=== PATIENT | female | born 1975 | race African-American/Black ===

== ENCOUNTER 2016-12-17 10:53 | Emergency (ER) | payer SELFPAY ==
[~2016-12-17] VITALS: Ht 165.1 cm; Wt 104.3 kg
[~2016-12-17 10:53] MED LIST: GABA-585 PO; VENTOLIN HFA18 GM IH
[2016-12-17 11:07] VITALS: BP 137/77
--- NOTE | 2016-12-17 11:28 | PHYS DOC ---
Past Medical History Past Medical History: Asthma, Migraines, Other Additional Past Medical Histor: hx viral meningitis Past Surgical History: Appendectomy Alcohol Use: Rarely Drug Use: Marijuana Adult General Chief Complaint Chief Complaint: HEAD INJURY/TRAUMA HPI HPI Patient is a 40 year old female who presents with posterior head and neck pain after falling this morning. She states she was taking a shower stepping on a Floor mat when she slipped and fell. Patient denies any loss of consciousness. Review of Systems Review of Systems Constitutional: Denies fever or chills [] Eyes: Denies change in visual acuity, redness, or eye pain [] HENT: Denies nasal congestion or sore throat [] Respiratory: Denies cough or shortness of breath [] Cardiovascular: No additional information not addressed in HPI [] GI: Denies abdominal pain, nausea, vomiting, bloody stools or diarrhea [] : Denies dysuria or hematuria [] Musculoskeletal: posterior head and neck pain Integument: Denies rash or skin lesions [] Neurologic: Denies headache, focal weakness or sensory changes [] Endocrine: Denies polyuria or polydipsia [] Current Medications Current Medications Current Medications Medications (Trade) Dose Ordered Sig/Meghna Start Time Stop Time Status Last Admin Dose Admin Acetaminophen (Tylenol) 500 mg 1X ONCE 12/17/16 11:30 12/17/16 11:31 DC 12/17/16 11:28 500 MG Ondansetron HCl (Zofran Odt) 4 mg 1X ONCE 12/17/16 11:30 12/17/16 11:31 DC 12/17/16 11:29 4 MG Allergies Allergies Allergies Coded Allergies Type Severity Reaction Last Updated Verified aspirin Allergy Unknown 09/28/13 Yes latex Allergy Unknown 09/28/13 Yes Physical Exam Physical Exam Constitutional: Well developed, well nourished, no acute distress, non-toxic appearance. [] HENT: Normocephalic, atraumatic, bilateral external ears normal, oropharynx moist, no oral exudates, nose normal. [] Eyes: PERRLA, EOMI, conjunctiva normal, no discharge. [] Neck: Patient is in a c-collar. Normal range of motion, diffuse paraspinal muscle tenderness to the cervical spine bilaterally as well as slight tenderness mid line cervical spine, supple, no stridor. [] Cardiovascular:Heart rate regular rhythm, no murmur [] Lungs & Thorax: Bilateral breath sounds clear to auscultation [] Abdomen: Bowel sounds normal, soft, no tenderness, no masses, no pulsatile masses. [] Skin: Warm, dry, no erythema, no rash. [] Back: No tenderness, no CVA tenderness. [] Extremities: No tenderness, no cyanosis, no clubbing, ROM intact, no edema. [] Neurologic: Alert and oriented X 3, normal motor function, normal sensory function, no focal deficits noted. Cranial nerves II through XII intact Psychologic: Affect normal, judgement normal, mood normal. [] Current Patient Data Vital Signs Vital Signs Date Time Temp Pulse Resp B/P (MAP) Pulse Ox O2 Delivery O2 Flow Rate FiO2 12/17/16 11:07 98.3 109 20 95 Room Air 98.3 Lab Values Laboratory Tests Test 12/17/16 10:38 12/17/16 11:25 POC Urine HCG, Qualitative Hcg negative (Negative) Urine Opiates Screen Neg (NEG) Urine Methadone Screen Neg (NEG) Urine Barbiturates Neg (NEG) Urine Phencyclidine Screen Neg (NEG) Urine Amphetamine/Methamphetamine Neg (NEG) Urine Benzodiazepines Screen Neg (NEG) Urine Cocaine Screen Pos (NEG) Urine Cannabinoids Screen Neg (NEG) Urine Ethyl Alcohol Pos (NEG) EKG EKG [] Radiology/Procedures Radiology/Procedures []PROCEDURE: CT HEAD AND CERVICAL SPINE WO One or more of the following individualized dose reduction techniques were utilized for this examination: 1. Automated exposure control 2. Adjustment of the mA and/or kV according to patient size 3. Use of iterative reconstruction technique CT brain without contrast, CT cervical spine without contrast. History: Fall, head and neck pain, dizziness CT brain CT scan of brain was done without contrast. There is no intracranial hemorrhage or subdural hematoma. An acute CVA is not identified. Ventricles are normal in size. There is no mass or shift of the midline. Sinuses are clear. A skull fracture is not identified. CT cervical spine Axial CT images were obtained through the cervical spine. Sagittal and coronal reconstructed images were reviewed. C-spine is in normal alignment. A fracture is not identified. A focal disc protrusion is not evident. Disc spaces are normal in height. Impression 1. No intracranial hemorrhage or acute finding noted. 2. No fracture or acute osseous abnormality noted in the cervical spine DICTATED and SIGNED BY: HALEY CHRISTIANSON MD DATE: 12/17/16 1222 CC: DYLANBECK MERLOS JOLENE; NON,STAFF ~ Course & Med Decision Making Course & Med Decision Making Pertinent Labs and Imaging studies reviewed. (See chart for details) Patient is in the ED with posterior head pain as well as neck pain after falling in her shower. There was no loss of consciousness. Ct of the head and cervical spine was negative for any acute findings. C collar discontinued. Drug screen positive for cocaine and alcohol encouraged to avoid drugs and alcohol. F/u with PCP in one week. Provided return precautions. D/c with zofran. Dragon Disclaimer Dragon Disclaimer This electronic medical record was generated, in whole or in part, using a voice recognition dictation system. Departure Departure Impression: Primary Impression: Fall from standing Additional Impressions: Acute cervical sprain Closed head injury without loss of consciousness ETOH abuse Cocaine abuse Disposition: 01 HOME, SELF-CARE Condition: STABLE Referrals: MARIELY GUERRERO MD (PCP) Follow-up with your doctor in 1-2 weeks Patient Instructions: Cervical Sprain, [id number], Fall Prevention and Home Safety, Head Injury, Adult, [id number] Additional Instructions: You were seen after falling. Your CT of the head and neck were normal. Monitor your self closely. Come to the Ed if you have uncontrolled pain, uncontrolled nausea or vomiting, excessive sleepiness, confusion or any other concerns. Take Tylenol for pain. Do not drink or do drugs after a head injury. It will make it hard to know if your symptoms worsen. Scripts Ondansetron (ZOFRAN ODT) 4 Mg Tab.rapdis 1 TAB SL Q8HRS, #15 TAB Prov: KWABENABECK FERNÁNDEZ 12/17/16 Problem Qualifiers Primary Impression: Fall from standing Encounter type: initial encounter Qualified Codes: W19.XXXA - Unspecified fall, initial encounter Additional Impressions: Acute cervical sprain Encounter type: initial encounter Qualified Codes: S13.9XXA - Sprain of joints and ligaments of unspecified parts of neck, initial encounter Closed head injury without loss of consciousness Encounter type: initial encounter Qualified Codes: S09.90XA - Unspecified injury of head, initial encounter DYLANBECK MERLOS JOLENE Dec 17, 2016 11:28
[2016-12-17] MEDS ORDERED: ACETAMINOPHEN 500 MG TABLET PO ONE (11:30)
[2016-12-17] MEDS ORDERED: ONDANSETRON ODT 4 MG TAB.RAPDIS. PO ONE (11:30)
[2016-12-17 11:55] LABS: BARBITURATES NEG (NEG); BENZODIAZEPINES NEG (NEG); CANNABINOIDS NEG (NEG); COCAINE POS (NEG); METHADONE NEG (NEG); OPIATES NEG (NEG); PHENCYCLIDINE NEG (NEG)
--- NOTE | 2016-12-17 12:28 | RAD ---
One or more of the following individualized dose reduction techniques were utilized for this examination: 1. Automated exposure control 2. Adjustment of the mA and/or kV according to patient size 3. Use of iterative reconstruction technique CT brain without contrast, CT cervical spine without contrast. History: Fall, head and neck pain, dizziness CT brain CT scan of brain was done without contrast. There is no intracranial hemorrhage or subdural hematoma. An acute CVA is not identified. Ventricles are normal in size. There is no mass or shift of the midline. Sinuses are clear. A skull fracture is not identified. CT cervical spine Axial CT images were obtained through the cervical spine. Sagittal and coronal reconstructed images were reviewed. C-spine is in normal alignment. A fracture is not identified. A focal disc protrusion is not evident. Disc spaces are normal in height. Impression 1. No intracranial hemorrhage or acute finding noted. 2. No fracture or acute osseous abnormality noted in the cervical spine
[2016-12-17] MEDS ORDERED: ONDA4TAB10 SL (13:06)
== END 2016-12-17 13:18 | disposition home or self-care (01) ==
LOC: ER 10:53
DX: S13.8XXA Sprain of joints and ligaments of other parts of neck, initial encounter (principal); S09.90XA Unspecified injury of head, initial encounter; F14.10 Cocaine abuse, uncomplicated; F10.10 Alcohol abuse, uncomplicated; F12.10 Cannabis abuse, uncomplicated; Z88.6 Allergy status to analgesic agent; Z91.040 Latex allergy status; G43.909 Migraine, unspecified, not intractable, without status migrainosus; J45.909 Unspecified asthma, uncomplicated; Z86.69 Personal history of other diseases of the nervous system and sense organs; W01.0XXA Fall on same level from slipping, tripping and stumbling without subsequent striking against object, initial encounter; Y93.E1 Activity, personal bathing and showering; Y99.8 Other external cause status; Y92.89 Other specified places as the place of occurrence of the external cause
CPT/HCPCS: 70450; 72125; 80305; 80320; 81025; 99285; Q0162; G0481